=== PATIENT | male | born 1980 | race American Indian/Alaskan Native ===

== ENCOUNTER 2017-04-18 08:06 | Emergency (ER) | payer SELFPAY ==
[2017-04-18 08:15] VITALS: BP 138/84
[2017-04-18] MEDS ORDERED: FLEXERIL PO ONE (08:42)
[2017-04-18] MEDS ORDERED: MOTRIN PO ONE (08:42)
--- NOTE | 2017-04-18 08:44 | Emergency Department Report ---
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 Patient states shortly after incident and some swelling and redness to his left foot. Patient states minimal pain with some pressure to the foot. Patient denies inability to walk, foot numbness or loss of sensation in the foot. He denies any other medical or other problems ED Past Medical Hx - Past Medical History Previous Medical History?: No - Surgical History Past Surgical History?: Yes Additional Surgical History: Right inquinal hernia - Social History Smoking Status: Current Every Day Smoker Substance Use Type: None - Medications Home Medications: Home Medications Medication Instructions Recorded Confirmed Last Taken Type Cyclobenzaprine [Flexeril] 10 mg PO BID PRN #20 tablet 04/18/17 Unknown Rx Ibuprofen [Motrin] 800 mg PO Q8HR PRN #40 tablet 04/18/17 Unknown Rx ED Review of Systems ROS: Stated complaint: LEFT FOOTSWOLLEN Other details as noted in HPI Constitutional: denies: chills, fever Eyes: denies: eye pain, eye discharge, vision change ENT: denies: ear pain, throat pain Respiratory: denies: cough, shortness of breath, wheezing Cardiovascular: denies: chest pain, palpitations Endocrine: no symptoms reported Gastrointestinal: denies: abdominal pain, nausea, diarrhea Genitourinary: denies: urgency, dysuria Musculoskeletal: denies: back pain, joint swelling, arthralgia Skin: denies: rash, lesions Neurological: denies: headache, weakness, paresthesias Psychiatric: denies: anxiety, depression Hematological/Lymphatic: denies: easy bleeding, easy bruising Physical Exam - Physical Exam Vital Signs: Vital Signs 04/18/17 08:08 Temperature 98.4 F Pulse Rate 64 Respiratory 18 Rate Blood Pressure 138/84 O2 Sat by Pulse 98 Oximetry Physical Exam: GENERAL: Alert and oriented x3, no apparent distress, Normal Gait, atraumatic. HEAD: Head is normocephalic and a-traumatic. NECK: Supple. Non edematous, . No lymphadenopathy or thyromegaly. LUNGS: Symetrical with respiration, No wheezing, no rales or crackles, CTAB. HEART: S1, S2 present, regular rate and rhythm without murmur, no rubs, no gallops. Non tender to palpation EXTREMITIES/MUSCULOSKELETAL: No cyanosis, clubbing, rash, lesions or edema. Full ROM bilaterally. Pedal Pulses 2+ bilaterally. LE 5+ strength bilaterally, no calf tenderness. Left anterior foot moderately swollen, tender to palpation , patient had full range of motion of the left foot. No pitting edema NEUROLOGIC: The patient is cooperative with no focal neurologic deficits. . Normal speech. Normal sensation in bilateral upper and lower extremities, No loss of sensation, PSYCHIATRIC: Mood is congruent with affect, denies suicidal or homicidal ideations. SKIN: Warm and dry, No lesions, No ulceration or induration present. ED Course Vital Signs 04/18/17 08:08 Temperature 98.4 F Pulse Rate 64 Respiratory 18 Rate Blood Pressure 138/84 O2 Sat by Pulse 98 Oximetry ED Medical Decision Making - Radiology Data Radiology results: report reviewed, image reviewed XRay Report Signed Patient: SORAIDA AGRAWAL MR#: [id number] : 1980 Acct:[id number] Age/Sex: 37 / M ADM Date: 04/18/17 Loc: ED Attending Dr: Ordering Physician: JEROD ADAMS MD Date of Service: 04/18/17 Procedure(s): XR foot 3+V LT Accession Number(s): [id number] cc: ED MD BRYAN Fluoro Time In Minutes: LEFT FOOT, 3 views: History: Left foot injury, pain. A nondisplaced transverse fracture is identified at the base of the fifth metatarsal. No evidence for calcified callous. The remaining bony structures are intact and unremarkable. No joint pathology. There is mild soft tissue swelling. IMPRESSION: Wang fracture. Transcribed By: TTR Dictated By: TERESITA VÁZQUEZ JR, MD Electronically Authenticated By: TERESITA VÁZQUEZ JR, MD Signed Date/Time: 04/18/17 0838 - Medical Decision Making Patient is a 37-year-old male who presents with left Wang fracture ED course: Patient received Motrin and Flexeril in the ED. Patient received ice therapy to the swelling. OCL splint applied to the left foot. Posttreatment evaluation: No vascular compromise, no loss of sensation X-ray report see above, I discussed x-ray findings with the patient. I discussed rest protocol with the patient. I discussed the patient's admission to follow-up with orthopedic doctor. Vital signs are normal patient is no acute distress patient was given crutches upon discharge Critical care attestation.: If time is entered above; I have spent that time in minutes in the direct care of this critically ill patient, excluding procedure time. ED Disposition Clinical Impression: Wang fracture Qualifiers: Encounter type: initial encounter Fracture type: closed Laterality: left Qualified Code(s): S99.192A - Other physeal fracture of left metatarsal, initial encounter for closed fracture Disposition: DC- TO HOME OR SELFCARE Is pt being admited?: No Does the pt Need Aspirin: No Condition: Stable Instructions: Foot Fracture in Adults (ED), RICE Therapy (ED) Additional Instructions: Follow-up with her orthopedic doctor Idris as discussed Follow RICE protocols and keep pressure off the foot for the next 1-2 weeks. Take medications as prescribed. If you develop new symptoms such as numbness in loss of sensation in the foot please return to ED immediately Prescriptions: Cyclobenzaprine [Flexeril] 10 mg PO BID PRN #20 tablet PRN Reason: Muscle Spasm Ibuprofen [Motrin] 800 mg PO Q8HR PRN #40 tablet PRN Reason: Pain Referrals: PRIMARY CAREMD [Primary Care Provider] - 3-5 Days VAISHNAVI BARROSO MD [Staff Physician] - 3-5 Days [facility] [Outside] - 3-5 Days Forms: Work/School Release Form, Accompanied Note Time of Disposition: 09:36
== END 2017-04-18 10:13 | disposition home or self-care (01) ==
LOC: ED 08:06
DX: S92.355A Nondisplaced fracture of fifth metatarsal bone, left foot, initial encounter for closed fracture (principal); F17.200 Nicotine dependence, unspecified, uncomplicated; X58.XXXA Exposure to other specified factors, initial encounter; Y93.89 Activity, other specified; Y99.8 Other external cause status; Y92.89 Other specified places as the place of occurrence of the external cause

== ENCOUNTER 2017-07-18 13:04 | Emergency (ER) | payer OTHER ==
[2017-07-18 13:23] VITALS: BP 140/76
[2017-07-18] MEDS ORDERED: ASPIRIN PO ONE (13:23)
[2017-07-18] MEDS ORDERED: NITRO-BID 2% TP ONE (13:50)
[2017-07-18] MEDS ORDERED: MORPHINE IV ONE (13:50)
[2017-07-18] MEDS ORDERED: ZOFRAN IV ONE (13:50)
--- NOTE | 2017-07-18 13:55 | Emergency Department Report ---
HPI - General Chief Complaint: Chest Pain Time Seen by Provider: 07/18/17 13:40 - [facility] HPI: Room 7 The patient is a 37-year-old male presenting with a chief complaint of headache and chest pain. Patient states his symptoms began last night when his awakened with left-sided headache. Patient states he took Motrin headache went away but eventually returned. The patient stated this morning in addition to the headache is intermittent tightness in his left chest. Patient denies shortness of breath, nausea/vomiting or diaphoresis. Patient denies any preceding trauma. Patient denies any history of fever. The patient gives his headache a score of 10/10 and his chest pain is score of 6/10. The patient states she's never had a stress test or cardiac catheterization Location: Head, chest Duration: [See above] Quality: Headache, tightness Severity: [See above] Modifying factors: [see above] Context: [see above] Mode of transportation: [not driving] ED Past Medical Hx - Past Medical History Previous Medical History?: Yes Additional medical history: right inquinal hernia - Surgical History Past Surgical History?: Yes Additional Surgical History: Right inquinal hernia - Social History Smoking Status: Current Every Day Smoker Substance Use Type: None (denies illicit drug use), Alcohol (occasional) - Medications Home Medications: Home Medications Medication Instructions Recorded Confirmed Last Taken Type Cyclobenzaprine [Flexeril] 10 mg PO BID PRN #20 tablet 04/18/17 Unknown Rx Ibuprofen [Motrin] 800 mg PO Q8HR PRN #40 tablet 04/18/17 Unknown Rx ED Review of Systems ROS: Stated complaint: LEFT SIDE HEAD/CHEST PAIN Other details as noted in HPI Constitutional: diaphoresis (with headache) Respiratory: denies: shortness of breath Cardiovascular: chest pain Gastrointestinal: denies: nausea, vomiting Neurological: headache Physical Exam - Physical Exam Vital Signs: Vital Signs 07/18/17 13:20 Temperature 98.9 F Pulse Rate 107 H Respiratory 20 Rate Blood Pressure 140/76 O2 Sat by Pulse 97 Oximetry Physical Exam: GENERAL: The patient is well-developed well-nourished male lying on stretcher not appearing to be in acute distress. [] HEENT: Normocephalic. Atraumatic. Extraocular motions are intact. Patient has moist mucous membranes. NECK: Supple. No meningitic signs are noted. Trachea midline CHEST/LUNGS: Clear to auscultation. There is no respiratory distress noted. HEART/CARDIOVASCULAR: Regular. There is no tachycardia. There is no gallop rub or murmur. ABDOMEN: Abdomen is soft, nontender. Patient has normal bowel sounds. There is no abdominal distention. SKIN: There is no rash. There is no edema. There is no diaphoresis. NEURO: The patient is awake, alert, and oriented. The patient is cooperative. The patient has no focal neurologic deficits. The patient has normal speech. Cranial nerves II through XII grossly intact, no drift MUSCULOSKELETAL: There is no evidence of acute injury. ED Course Vital Signs 07/18/17 13:20 Temperature 98.9 F Pulse Rate 107 H Respiratory 20 Rate Blood Pressure 140/76 O2 Sat by Pulse 97 Oximetry - Consultations Consultation #1: 07/18/17 13:23 EKG was discussed with Dr. Garber at 13:23. States not indicative of STEMI ED Medical Decision Making - Lab Data Result diagrams: 07/18/17 13:27 07/18/17 13:27 Laboratory Tests 07/18/17 07/18/17 13:27 13:27 WBC 7.6 RBC 5.01 Hgb 15.1 Hct 45.9 H MCV 92 MCH 30 MCHC 33 RDW 13.0 L Plt Count 181 Lymph % (Auto) 7.9 L Garrett % (Auto) 7.3 Eos % (Auto) 0.4 Baso % (Auto) 0.2 Lymph # 0.6 L Garrett # 0.6 Eos # 0.0 Baso # 0.0 Seg Neutrophils % 84.2 H Seg Neutrophils # 6.4 Sodium 135 L Potassium 4.0 Chloride 100.1 Carbon Dioxide 27 Anion Gap 12 BUN 13 Creatinine 0.8 Estimated GFR > 60 BUN/Creatinine Ratio 16 Glucose 79 Calcium 9.3 Troponin T < 0.010 - EKG Data -: EKG Interpreted by Me EKG shows normal: sinus rhythm Rate: normal - EKG Data When compared to previous EKG there are: previous EKG unavailable Interpretation: nonspecific ST-T wave rica (ST elevation in leads V5, V6 without reciprocal changes. T-wave inversion in lead V2) - Radiology Data Radiology results: report reviewed (CT head, chest x-ray), image reviewed ( chest x-ray, CT head) interpreted by me: Chest x-ray-no focal infiltrates, no pneumothorax CT HEAD WITHOUT CONTRAST: HISTORY: Headache. TECHNIQUE: Sequential 2.5mm CT images. COMPARISON: none. FINDINGS: Cerebral Parenchyma: Within normal limits. Cerebellum: Within normal limits. Brainstem: Within normal limits. Ventricles: Normal. Sella: Normal. Extra-axial spaces: Normal. Basal Cisterns: Normal. Intracranial Hemorrhage: None. Midline Shift: None. Calvarium: Normal. Sinuses: Normal. Mastoid Air Cells: Normal. Visualized Orbits: Normal. IMPRESSION: Cranial CT scan within normal limits. Transcribed By: TTR Dictated By: TERESITA VÁZQUEZ JR, MD Electronically Authenticated By: TERESITA VÁZQUEZ JR, MD Signed Date/Time: 07/18/171450 DD/ 50 TD/TT: 07/18/171450 - Medical Decision Making During the interview patient made me aware that he would sign out AMA. I explained with his workup is negative I could not rule out recurrent cardiac event/ACS. Patient verbalized understanding. Patient signed AMA paperwork before being administered narcotic pain medication. - Differential Diagnosis ACS, ICH, pericarditis, GERD Critical care attestation.: If time is entered above; I have spent that time in minutes in the direct care of this critically ill patient, excluding procedure time. ED Disposition Clinical Impression: Chest pain, Headache Disposition: LEFT AGAINST MED ADVICE Is pt being admited?: No Does the pt Need Aspirin: Yes Condition: Undetermined Instructions: Chest Pain (ED) Referrals: PRIMARY CARE, [Primary Care Provider] - 3-5 Days Time of Disposition: 15:05 (patient leaving AMA)
[2017-07-18 13:58] LABS: BUN/Creatinine Ratio 16; Blood Urea Nitrogen 13 mg/dL (9-20); Calcium 9.3 mg/dL (8.4-10.2); Hemolysis Index 19
[2017-07-18 14:17] LABS: Basophils % (Auto) 0.2 % (0.0-1.8); Eosinophils % (Auto) 0.4 % (0.0-4.3); Hematocrit 45.9 % (35.5-45.6); Hemoglobin 15.1 gm/dl (11.8-15.2); Lymphocytes # (Auto) 0.6 K/mm3 (1.2-5.4); Lymphocytes % (Auto) 7.9 % (13.4-35.0); Mean Corpuscular HGB Conc 33 % (32-34); Mean Corpuscular Hemoglobin 30 pg (28-32); Mean Corpuscular Volume 92 fl (84-94); Monocytes # (Auto) 0.6 K/mm3 (0.0-0.8); Monocytes % (Auto) 7.3 % (0.0-7.3); Platelet Count 181 K/mm3 (140-440); Red Blood Count 5.01 M/mm3 (3.65-5.03)
--- NOTE | 2017-07-18 14:58 | Cat Scan Report ---
CT HEAD WITHOUT CONTRAST: HISTORY: Headache. TECHNIQUE: Sequential 2.5mm CT images. COMPARISON: none. FINDINGS: Cerebral Parenchyma: Within normal limits. Cerebellum: Within normal limits. Brainstem: Within normal limits. Ventricles: Normal. Sella: Normal. Extra-axial spaces: Normal. Basal Cisterns: Normal. Intracranial Hemorrhage: None. Midline Shift: None. Calvarium: Normal. Sinuses: Normal. Mastoid Air Cells: Normal. Visualized Orbits: Normal. IMPRESSION: Cranial CT scan within normal limits.
--- NOTE | 2017-07-18 15:01 | XRay Report ---
AP CHEST: HISTORY: chest pain AP view of the chest demonstrates a normal mediastinal and cardiac contour with clear lungs and normal bony and soft tissue structures. IMPRESSION: Unremarkable AP chest.
== END 2017-07-18 15:25 | disposition left against medical advice (07) ==
LOC: ED 13:04
DX: R07.9 Chest pain, unspecified (principal); R51 Headache; F17.200 Nicotine dependence, unspecified, uncomplicated
CPT/HCPCS: 36415; 70450; 71045; 80048; 84484; 85025; 93005; 93010; 99285

== ENCOUNTER 2017-07-20 08:04 | Emergency (ER) | payer OTHER ==
[2017-07-20 08:10] VITALS: BP 159/75
[2017-07-20] MEDS ORDERED: ROBITUSSIN PO ONE (09:40)
[2017-07-20] MEDS ORDERED: DELTASONE PO ONE (09:40)
[2017-07-20] MEDS ORDERED: BICILLIN L-A IM ONE (10:16)
--- NOTE | 2017-07-20 10:19 | Emergency Department Report ---
HPI - General Chief Complaint: Sore Throat Time Seen by Provider: 07/20/17 09:21 - HPI HPI: Patient is a 37-year-old male who presents to ED with his significant other complaining of throat pain 3 days. Patient describes pain as throbbing in nature, 7 out of 10 intensity, nonradiating, localized to his throat. Admits pain with swallowing and eating. She also admits pain worsen at night and sometimes he gets when he night. Patient admits intermittent dry, nonproductive cough. Patient admits fever for the first 2 days but not at the moment. Patient denies nausea/vomiting/abdominal pain/shortness of breath/chest pain/ headache. ED Past Medical Hx - Past Medical History Previous Medical History?: Yes Additional medical history: right inquinal hernia - Surgical History Past Surgical History?: Yes Additional Surgical History: Right inquinal hernia - Social History Smoking Status: Current Every Day Smoker Substance Use Type: Alcohol - Medications Home Medications: Home Medications Medication Instructions Recorded Confirmed Last Taken Type Ibuprofen [Motrin] 800 mg PO Q8HR PRN #30 tablet 07/20/17 Unknown Rx Nystas/Diphen/Xyl Visc/Mylanta 15 ml MM Q4H PRN #200 ml 07/20/17 Unknown Rx [Magic Mouthwash] ED Review of Systems ROS: Stated complaint: SORE THROAT Other details as noted in HPI Constitutional: fever (intermittent, now resolved). denies: chills Eyes: denies: eye pain, eye discharge, vision change ENT: throat pain. denies: ear pain, dental pain Respiratory: cough (minimal). denies: shortness of breath, wheezing Cardiovascular: denies: chest pain, palpitations Endocrine: no symptoms reported Gastrointestinal: denies: abdominal pain, nausea, vomiting, diarrhea Genitourinary: denies: urgency, dysuria, frequency, hematuria Musculoskeletal: denies: back pain, joint swelling, arthralgia Skin: denies: rash, lesions Physical Exam - Physical Exam Vital Signs: Vital Signs 07/20/17 08:07 Temperature 99.6 F Pulse Rate 102 H Respiratory 18 Rate Blood Pressure 159/75 O2 Sat by Pulse 97 Oximetry Physical Exam: GENERAL: Alert and oriented x3, no apparent distress, Normal Gait, atraumatic. HEAD: Head is normocephalic and a-traumatic. NOSE: Nose symetrical, Nontender,Nares appeared normal. MOUTH:Mouth is well hydrated and without lesions. Tonsils erythematous and swollen, Uvula midline, Tongue mildly elevated. Mucous membranes are moist. Posterior pharynx clear, no exudate or lesions. Patent airways. NECK: Supple. Non edematous, anterior cervical lymphadenopathy , no thyromegaly. LUNGS: Symetrical with respiration. CTAB. HEART: S1, S2 present, regular rate and rhythm without murmur, ABDOMEN: No organomegaly was noted,Positive bowel sounds, soft, and non- distended. . Nontender to palpation on all Quadrants, NO CVA tenderness. SKIN: Warm and dry, No lesions, No ulceration or induration present. ED Course Vital Signs 07/20/17 08:07 Temperature 99.6 F Pulse Rate 102 H Respiratory 18 Rate Blood Pressure 159/75 O2 Sat by Pulse 97 Oximetry ED Medical Decision Making - Medical Decision Making 37-year-old male presents with strep pharyngitis. ED course: Rapid strep tests ordered rapid strep test positive Patient received 1 dose of Tylenol, 1.2 million units of penicillin, 60 mg of prednisone. Vital signs stable patient is in no acute or respiratory distress. Discussed findings with patient about the positive strep. Discussed treatment in ED with patient Discussed the patient that strep throat is contagious and to limit sharing spoons and such. Pt to be sent home on Motrin and a couple of days worth of magic mouthwash. Discussed with patient follow-up with primary care physician. Patient verbally states he understands and will comply to follow-up. - Differential Diagnosis 1. strep pharyngitis/ tonsillitis , 2. URI , 3. Viral syndrome Critical care attestation.: If time is entered above; I have spent that time in minutes in the direct care of this critically ill patient, excluding procedure time. ED Disposition Clinical Impression: Strep pharyngitis, Acute bacterial tonsillitis Disposition: TO HOME OR SELFCARE Is pt being admited?: No Does the pt Need Aspirin: No Condition: Stable Instructions: Tonsillitis (ED), Strep Throat (ED) Additional Instructions: Make sure to follow up with the primary care physician as discussed. Take all your medications as you've been prescribed. If you have any worsening symptoms or develop new symptoms please return to ED immediately. Prescriptions: Ibuprofen [Motrin] 800 mg PO Q8HR PRN #30 tablet PRN Reason: Pain Nystas/Diphen/Xyl Visc/Mylanta [Magic Mouthwash] 15 ml MM Q4H PRN #200 ml PRN Reason: Sore Throat Referrals: PRIMARY CARE, [Primary Care Provider] - 3-5 Days [facility] [Outside] - 3-5 Days [facility] [Outside] - 3-5 Days Forms: Accompanied Note, Work/School Release Form(ED) Time of Disposition: 10:20
[2017-07-20] MEDS ORDERED: MAGIC MOUTHWASH PO NR (10:30)
== END 2017-07-20 11:00 | disposition home or self-care (01) ==
LOC: ED 08:04
DX: J02.0 Streptococcal pharyngitis (principal); F17.200 Nicotine dependence, unspecified, uncomplicated
CPT/HCPCS: 87430; 96372; 99283; J0561; J7512

== ENCOUNTER 2017-09-26 12:22 | Emergency (ER) | payer OTHER ==
[2017-09-26 12:42] VITALS: BP 127/74
== END 2017-09-26 14:13 | disposition left against medical advice (07) ==
LOC: ED 12:22
DX: M25.511 Pain in right shoulder (principal); Z53.21 Procedure and treatment not carried out due to patient leaving prior to being seen by health care provider